=== PATIENT | male | born 1965 | race Caucasian/White ===

== ENCOUNTER 2021-12-14 08:00 | Outpatient (CLI) | payer OTHER ==
[2021-12-14 19:50] LABS: BASOPHILS % (AUTO) 0.4 %; EOSINOPHILS # (AUTO) 0.2 10^3/uL (0.0-0.7); EOSINOPHILS % (AUTO) 3.2 %; HCT - HEMATOCRIT 47.2 % (42.0-52.0); HGB - HEMOGLOBIN 15.7 g/dL (14.0-18.0); LYMPHOCYTES # (AUTO) 1.6 10^3/uL (1.5-3.5); LYMPHOCYTES % (AUTO) 21.2 %; MEAN CORPUSCULAR HEMOGLOBIN 29.5 pg (27.0-31.0); MEAN CORPUSCULAR HGB CONC 33.3 g/dL (32.0-36.0); MEAN CORPUSCULAR VOLUME 88.7 fL (80.0-94.0); MEAN PLATELET VOLUME 11.1 fL (7.4-11.4); MONOCYTES # (AUTO) 0.7 10^3/uL (0.0-1.0); MONOCYTES % (AUTO) 9.8 %; NEUTROPHILS # (AUTO) 4.9 10^3/uL (1.5-6.6); NEUTROPHILS % (AUTO) 65.1 %; PLT - PLATELET COUNT 244 10^3/uL (130-450); RED BLOOD COUNT 5.32 10^6/uL (4.70-6.10); RED CELL DISTRIBUTION WIDTH 12.3 % (12.0-15.0); WHITE BLOOD COUNT 7.6 x10^3/uL (4.8-10.8)
[2021-12-14 20:03] LABS: ALBUMIN 4.7 g/dL (3.2-5.5); ALBUMIN/GLOBULIN RATIO 1.5 (1.0-2.2); BILIRUBIN,TOTAL 0.6 mg/dL (0.2-1.0); POTASSIUM 4.1 mmol/L (3.5-5.0); TOTAL PROTEIN 7.8 g/dL (6.7-8.2)
== END 2021-12-14 23:59 | disposition home or self-care (01) ==
LOC: LAB.S 08:00
PROVIDERS: ATTEND Physician Assistant Medical
DX: Z51.81 Encounter for therapeutic drug level monitoring (principal); E78.5 Hyperlipidemia, unspecified; Z79.899 Other long term (current) drug therapy
CPT/HCPCS: 36415; 80053; 85025

== ENCOUNTER 2022-03-26 16:27 | Outpatient (CLI) | payer OTHER ==
[2022-03-26 21:10] LABS: PSA FREE 0.35 ng/mL (0.16-2.81); PSA TOTAL 0.92 ng/mL (0.000-2.000)
== END 2022-03-26 16:28 | disposition home or self-care (01) ==
LOC: LAB.S 16:27
PROVIDERS: ATTEND Physician Assistant
DX: N40.1 Benign prostatic hyperplasia with lower urinary tract symptoms (principal); N13.8 Other obstructive and reflux uropathy
CPT/HCPCS: 36415; 84153; 84154

== ENCOUNTER 2022-05-05 09:28 | Day surgery (SDC) | payer OTHER ==
[2022-05-05] MEDS ORDERED: LACTATED RINGERS 1,000 ML IV ONE ×2 (09:48→11:34)
[2022-05-05] MEDS ORDERED: LIDOCAINE-MPF 2% 5 ML VIAL ONE (10:28)
[2022-05-05] MEDS ORDERED: PROPOFOL 500 MG/50 ML 500 MG/50 ML VIAL ONE (10:28)
--- NOTE | 2022-05-05 10:30 | ANESTHESIA ---
Pre-Anesthesia VS, & Labs - Diagnosis screening colonoscopy - Procedure colonoscopy Vital Signs: Temp Pulse Resp BP Pulse Ox 36.4 C L 78 16 136/96 H 98 05/05/22 09:51 05/05/22 09:51 05/05/22 09:51 05/05/22 09:51 05/05/22 09:51 Height: 5 ft 10 in Weight (kg): 74 kg Body Mass Index: 23.3 BMI Classification: Healthy weight - NPO >8 hours Home Medications and Allergies Home Medications: Ambulatory Orders Losartan Potassium 1 tab PO DAILY 05/04/22 Pravastatin [Pravachol] 1 tab PO DAILY 05/04/22 Tadalafil [Cialis] 1 tab PO DAILY 05/04/22 Losartan Potassium 1 tab PO DAILY 05/04/22 Pravastatin [Pravachol] 1 tab PO DAILY 05/04/22 Tadalafil [Cialis] 1 tab PO DAILY 05/04/22 Allergies/Adverse Reactions: Allergies Allergy/AdvReac Type Severity Reaction Status Date / Time clarithromycin [From Biaxin] AdvReac Unknown Verified 05/04/22 13:31 Penicillins AdvReac Nausea Verified 05/04/22 13:31 Sulfa (Sulfonamide AdvReac Nausea Verified 05/04/22 13:31 Antibiotics) Anes History & Medical History - Anesthetic History Anesthesia Complications: reports: Slow wake-up - Medical History Cardiovascular: reports: Hypertension, High cholesterol Pulmonary: reports: Sleep apnea (reports snoring, has not been tested.) Gastrointestinal: reports: None Urinary: reports: Benign prostate hypertrophy Neuro: reports: None Musculoskeletal: reports: None Endocrine/Autoimmune: reports: None Blood Disorders: reports: None Skin: reports: Rosacea Smoking Status: Never smoker Psychosocial: reports: No issues indicated History of Cancer?: No Exam General: Alert, Oriented x3, Cooperative, No acute distress Dental: WNL Mouth Openin Fingerbreadth Neck Mobility: Normal Mallampati classification: II Thyromental Distance: 4-6 cm Mental/Cognitive Status: Alert/Oriented X3, Normal for patient Plan Anesthesia Type: General, Total IV Consent for Procedure(s) Verified and Reviewed: Yes Code Status: Attempt Resuscitation ASA classification: 2-Mild systemic disease Is this case an emergency?: No
--- NOTE | 2022-05-05 12:08 | ANESTHESIA POST OP EVALUATION ---
Anesthesia Post Eval - Post Anesthesia Eval Vitals: Last Vital Signs Temp 36.4 C L 05/05/22 11:54 Pulse 65 05/05/22 11:54 Resp 16 05/05/22 11:54 BP 111/86 H 05/05/22 11:54 Pulse Ox 100 05/05/22 11:54 CV Function Including HR & BP: Stable Pain Control: Satisfactory Nausea & Vomiting: Negative Mental Status: Baseline Respiratory Status: Airway Patent Hydration Status: Satisfactory Anesthesia Complications: None
[2022-05-05 12:12] VITALS: BP 111/80
== END 2022-05-05 09:29 | disposition home or self-care (01) ==
LOC: SDS 09:28
PROVIDERS: ATTEND Surgery
DX: Z12.11 Encounter for screening for malignant neoplasm of colon (principal); K57.30 Diverticulosis of large intestine without perforation or abscess without bleeding; K64.8 Other hemorrhoids; Z86.010 Personal history of colon polyps; I10 Essential (primary) hypertension; G47.30 Sleep apnea, unspecified
CPT/HCPCS: 45378; J7120

== ENCOUNTER 2022-06-15 12:43 | Outpatient (CLI) | payer OTHER ==
--- NOTE | 2022-06-15 18:12 | Ultrasound Report ---
PROCEDURE: Abdomen Limited INDICATIONS: ELEVATED ALT TECHNIQUE: Real-time scanning was performed of the abdominal and retroperitoneal organs, with image documentatio n. COMPARISON: None. FINDINGS: Liver: Liver shows diffusely increased echogenicity without focal mass lesion. No intrahepatic duct al dilation. Flow within main portal vein is hepatopedal Gallbladder: Sonolucent without cholelithiasis. No gallbladder wall thickening. No pericholecystic fluid or Shaikh's sign. Common Bile Duct: 3.9 mm. Pancreas: Unremarkable as visualized. Right Kidney: Appropriate in size and echotexture. No evidence of hydronephrosis. No shadowing calc ngoc. No solid or cystic mass lesion. IMPRESSION: Hepatic fatty infiltration. Otherwise unremarkable right upper quadrant ultrasound Reviewed by: Zaire Singh MD on 06/15/2022 5:10 PM TIM Approved by: Zaire Singh MD on 06/15/2022 5:10 PM TIM Station ID: [id number]
== END 2022-06-15 12:44 | disposition home or self-care (01) ==
LOC: DI 12:43
PROVIDERS: ATTEND Nurse Practitioner Family
DX: K76.0 Fatty (change of) liver, not elsewhere classified (principal)

== ENCOUNTER 2022-07-05 12:15 | Outpatient (CLI) | payer OTHER | END 2022-07-05 12:16 | disposition home or self-care (01) | LOC: SC 12:15 | PROVIDERS: ATTEND Nurse Practitioner Family | DX: G47.33 Obstructive sleep apnea (adult) (pediatric) (principal); R09.02 Hypoxemia | CPT/HCPCS: 95806 ==

== ENCOUNTER 2022-07-14 15:27 | Outpatient (CLI) | payer OTHER ==
[2022-07-14 16:11] VITALS: BP 114/64
--- NOTE | 2022-07-14 16:11 | SLEEP CARE CONSULTATION ---
Information from patient questionnaire entered by Russell Elias. I have reviewed and concur with the information entered by Russell Elias. This document represents the service I personally performed and the decisions made by me, Aspen Elkins ARNP. History of Present Illness Service Date and Time: 07/14/2022 1527 Initial [place] Sleepiness Scale score: 3 (05/21/2022) Current [place] Sleepiness Scale score: 5 (07/14/22) Additional HPI information: DAVID ROLAND returns for follow up and results of the recently performed home sleep study. I explained the pathophysiology behind obstructive sleep apnea. We then spent quite a bit of time discussing different treatment options. For mild obstructive sleep apnea, surgery and oral appliance are alternatives to nasal CPAP therapy but in moderate or severe cases, nasal CPAP is the most effective and reliable treatment. I reviewed the impact of weight changes on sleep apnea and strongly recommended losing weight. After some discussion, the patient opted to go with the nasal CPAP therapy. Nasal autoCPAP set at 4-15 cmH20 will be ordered with rationale explained. A manual titration study will be ordered if unable to find optimal pressure with office adjustments. I explained how CPAP machine works and what to expect when using the machine. Using CPAP every night in order to get used to it was emphasized. Patient advised to put CPAP mask on before getting into bed so as not to fall asleep without CPAP. To assist acclimation to CPAP use, it could also be used for a short time during day while reading or watching TV. The patient was instructed to call the CPAP supplier to discuss any mechanical problem that may occur. If the mask given is uncomfortable or is difficult to keep on through the night even with adjustment, contact the CPAP supplier as many will replace with another mask style if notified before 30 days. If snoring or perceives is not getting enough air or too much air from the machine, notify this office. Patient does not drink alcohol. Patient was cautioned about risks of drowsy driving until sleepiness symptoms resolve. Patient denies drowsy driving. Sleep Study - Results Type of Sleep Study: Home sleep study (DONE 07/05/22) Prior sleep studies: No Polysomnography/Home Sleep Study results: Physician Impression: The quality of the study is good. The length of the study is [id number] (< 240 minutes). Please also see the tabulated and graphic data. 1. Obstructive Sleep Apnea-Hypopnea (ICD-10 G47.33), moderate, with an AHI of 28.4/hr and mitul SaO2 of 86%. During the study, the patient had 38 apneas (38 obstructive, 0 central, 0 mixed) and 39 hypopneas. The longest episode lasted 88.5 seconds. The respiratory events occurred independently of sleep stage and body position (supine AHI was 22.7 and non-supine, 32.33). 2. Hypoxemia (ICD-10 R09.02), mild, with the lowest oxygen saturation of 86 % and 2.6 minutes with SaO2 under 90%. Baseline oxygen saturation was normal (Average oxygen saturation was 95%). Allergies and Home Medications Home medication list reviewed: Yes (Rosuvastatin 20 mg replaces Pravastatin 10 mg) Allergy and home medication list: Allergies clarithromycin [From Biaxin] Adverse Reaction (Verified 05/04/22 13:31) Unknown Penicillins Adverse Reaction (Verified 05/04/22 13:31) Nausea Sulfa (Sulfonamide Antibiotics) Adverse Reaction (Verified 05/04/22 13:31) Nausea Review of Systems Review of systems same as previous: No (Fatty liver) Physical Exam Vital signs obtained and entered by: THAIS SHIELDS Blood Pressure: 114/64 (left arm ) Cuff size: regular Heart Rate: 69 O2 Saturation: 100 Height: 5 ft 10 in Weight: 164 lb Body Mass Index: 23.5 BMI Classification: Normal Impression and Plan 1. Obstructive Sleep Apnea-Hypopnea Syndrome, moderate, with lowest oxygen saturation of 86%. Obviously this is the cause of the patients symptoms of unrefreshed sleep, and excessive daytime sleepiness. Positive pressure therapy could benefit hypertension and depression. As mentioned above, the patient will be started on nasal autoCPAP therapy with pressure set at 4-15 cmH2O. Compliance guidelines also reviewed. A copy of compliance guidelines will be given for reference at check out. * Nasal auto CPAP therapy, pressure at 4-15 cm H2O. * The patient is again cautioned about driving until sleepiness completely resolves. * Return one month after CPAP obtained. I will assess response to therapy and compliance at that time. Counseling Topics: Weight control Visit Type: In Office Time Spent with Patient (minutes): 24 Provider Statement: I spent 100% of the Face to Face Visit with the patient with greater than 50% spent counseling the patient and coordination of care.
== END 2022-07-14 15:28 | disposition home or self-care (01) ==
LOC: SC 15:27
PROVIDERS: ATTEND Nurse Practitioner Family
DX: G47.33 Obstructive sleep apnea (adult) (pediatric) (principal)
CPT/HCPCS: 99212; 99213

== ENCOUNTER 2022-09-07 13:13 | Outpatient (CLI) | payer OTHER ==
[2022-09-07 14:02] VITALS: BP 124/72
--- NOTE | 2022-09-07 14:02 | SLEEP CARE CONSULTATION ---
Information from patient questionnaire entered by Amarilis oStomayor. I have reviewed and concur with the information entered by Amarilis Sotomayor. This document represents the service I personally performed and the decisions made by me, Aspen Elkins ARNP. History of Present Illness Service Date and Time: 09/07/2022 1313 Previous diagnosis: Moderate, Obstructive Sleep Apnea-Hypopnea Syndrome AHI: 28.4 (in 2021) Reason for follow up: first compliance (SET UP 07/27/2022 RESMED) Equipment type: CPAP Equipment obtained from: Other ([facility]; got initial supplies) Mask style: Nasal pillows (Eitan II) Backup mask available: No (will keep old mask when replaced) Last cushion change: 3 days Prior sleep studies: No Type of Sleep Study: Home sleep study (DONE 07/05/22) HPI additional information: DAVID ROLAND was diagnosed to have moderate, AHI 28.4, obstructive sleep apnea-hypopnea syndrome and returned today for CPAP therapy first compliance follow-up. Sleep Study - Results Type of Sleep Study: Home sleep study (DONE 07/05/22) Prior sleep studies: No CPAP Compliance Data - Data Reviewed with Patient Average duration of nightly device use: 6 HRS 52 MIN Compliance rate %: 85 (08/05/2022-09/07/2022; 29/34 days used) Current pressure setting (cmH2O): 4-15 (median 7.7, avg 10.7, max 12.4) Average residual AHI: 11.2 Central apnea: 8.2 Obstructive apnea: 1.9 Subjective Patient concerns: reports: mask discomfort (hard to get nasal pillows to seat well; gets easier as it softens up), mask leak noise, nasal congestion (has allergy issues; better with mask). denies: aerophagia, air blowing in eyes, condensation in mask/hose, dry mouth, nose, throat, epistaxis Observed to snore while using device: No Current pressure setting perceived as: comfortable (unsure) On therapy, patient: reports: sleeping better (a little bit), other (not much improvement yet with feeling rested). denies: drowsiness while driving Initial [place] Sleepiness Scale score: 3 (05/21/2022) Current [place] Sleepiness Scale score: 3 (09/07/2022) Allergies and Home Medications Drug allergies reviewed: Yes (see list in EMR) Home medication list reviewed: Yes (no changes) Review of Systems Review of systems same as previous: Yes (no changes) Physical Exam Vital signs obtained and entered by: AMARILIS Laureano MA Blood Pressure: 124/72 (LEFT ARM) Cuff size: regular Heart Rate: 114 O2 Saturation: 95 Height: 5 ft 10 in Weight: 171 lb Body Mass Index: 24.5 BMI Classification: Normal Impression and Plan 1. Obstructive Sleep Apnea-Hypopnea Syndrome, moderate, with good treatment compliance and fair apnea control with elevated residual AHI. He had elevated central index at 8.2 and obstructive of 1.9. The patients pressure will be changed to autoCPAP 6-10 cmH20 for elevation of residual AHI. Patient advised to contact me if pressure change is uncomfortable so that it can be adjusted. Goals for apnea control discussed. He had been using a nasal pillows Eitan II mask and is able to get it to work for him but still gets some mask leak noise and discomfort. He is persevering. I talked to him about a [employer] nasal pillows mask as an alternative because he does not like the hose in front. He wi ll think about this, he is able to get the other mask to work for him most of the time. He wants to try it for a little longer. He may need a smaller cushion size, he is using a medium. Patient's apnea severity and rationale for treatment to reduce apnea, improve sleep quality and reduce cardiovascular and cerebrovascular events was reviewed. I also reviewed the benefit of consistent device use of CPAP for hypertension and depression. * Change auto CPAP pressure to 6-10 cmH2O * Notify me if snoring with mask or feeling that the pressure is too much or too little * maintain a healthy weight * Call this office if any problems using CPAP * Return for follow up in 1-2 months, or sooner if concerns arise Counseling Topics: Spare mask Visit Type: In Office Time Spent with Patient (minutes): 22 Provider Statement: I spent 100% of the Face to Face Visit with the patient with greater than 50% spent counseling the patient and coordination of care.
== END 2022-09-07 13:14 | disposition home or self-care (01) ==
LOC: SC 13:13
PROVIDERS: ATTEND Nurse Practitioner Family
DX: G47.33 Obstructive sleep apnea (adult) (pediatric) (principal)
CPT/HCPCS: 99212; 99213

== ENCOUNTER 2022-10-20 13:11 | Outpatient (CLI) | payer OTHER ==
[2022-10-20 13:53] VITALS: BP 124/88
--- NOTE | 2022-10-20 13:53 | SLEEP CARE CONSULTATION ---
Information from patient questionnaire entered by Amarilis Sotomayor. I have reviewed and concur with the information entered by Amarilis Sotomayor. This document represents the service I personally performed and the decisions made by , Aspen Elkins ARNP. History of Present Illness Service Date and Time: 10/20/2022 1311 Previous diagnosis: Moderate, Obstructive Sleep Apnea-Hypopnea Syndrome AHI: 28.4 (in 2021) Reason for follow up: other (SIX WEEK F/U PRESSURE CHANGE) Equipment type: CPAP (RESMED) Equipment obtained from: Other ([facility]; getting supplies) Mask style: Nasal pillows Mask brand: Eitan II Backup mask available: No (will keep old mask when replaced) Last cushion change: 1 month+ Prior sleep studies: No Type of Sleep Study: Home sleep study (DONE 07/05/22) HPI additional information: DAVID ROLAND was diagnosed to have moderate, AHI 28.4, obstructive sleep apnea-hypopnea syndrome and returned today for CPAP therapy six weeks follow-up. Sleep Study - Results Type of Sleep Study: Home sleep study (DONE 07/05/22) Prior sleep studies: No CPAP Compliance Data - Data Reviewed with Patient Average duration of nightly device use: 6 hours 8 minutes Compliance rate %: 62 (08/05-10/20/2022; 51/77 days used) Current pressure setting (cmH2O): 6-10 Average residual AHI: 11.9 Central apnea: 8.2 Obstructive apnea: 2.7 Average large leak: 1.3 Subjective Missed days of use due to: reports: illness (nasal congestion with being sick) Patient concerns: reports: mask leak noise, nasal congestion. denies: aerophagia, mask discomfort, air blowing in eyes, condensation in mask/hose, dry mouth, nose, throat, epistaxis Observed to snore while using device: No Current pressure setting perceived as: comfortable On therapy, patient: reports: sleeping better, awakening more refreshed, being more awake and alert during the day, more rested overall. denies: drowsiness while driving Initial [place] Sleepiness Scale score: 3 (05/21/2022) Current [place] Sleepiness Scale score: 3 (10/20/22) Allergies and Home Medications Drug allergies reviewed: Yes (see list in EMR) Home medication list reviewed: Yes (no changes) Review of Systems Review of systems same as previous: Yes (no changes; had a respiratory illness) Physical Exam Vital signs obtained and entered by: AMARILIS Laureano MA Blood Pressure: 124/88 (LEFT ARM) Cuff size: regular Heart Rate: 81 O2 Saturation: 94 Height: 5 ft 10 in Weight: 164 lb 9.6 oz Body Mass Index: 23.6 BMI Classification: Normal Impression and Plan 1. Obstructive Sleep Apnea-Hypopnea Syndrome, moderate, with fair treatment compliance and fair apnea control with elevated residual AHI. On CPAP therapy, the patient has better sleep quality and is more rested overall. Patient still has an elevated residual AHI with central index of 8.2 and obstructive index at 2.7. I discussed with patient to have a titration study to try and find adequate pressure to control apneas (central and obstructive). He voiced understanding and agreement. He was informed of need for Covid test prior to night of titration study. He voiced understanding. Patient's apnea severity and rationale for treatment to reduce apnea, improve sleep quality and reduce cardiovascular and cerebrovascular events was reviewed. I also reviewed the benefit of consistent device use of CPAP for hypertension and depression. * Continue auto CPAP pressure at 6-10 cmH2O * Titration study * Notify me if snoring with mask or feeling that the pressure is too much or too little * Attempt to lose weight * Call this office if any problems using CPAP * Return for follow up after titration study completed, or sooner if concerns arise Counseling Topics: Spare mask Visit Type: In Office Time Spent with Patient (minutes): 23 Provider Statement: I spent 100% of the Face to Face Visit with the patient with greater than 50% spent counseling the patient and coordination of care.
== END 2022-10-20 13:12 | disposition home or self-care (01) ==
LOC: SC 13:11
PROVIDERS: ATTEND Nurse Practitioner Family
DX: G47.33 Obstructive sleep apnea (adult) (pediatric) (principal)
CPT/HCPCS: 99212; 99213

== ENCOUNTER 2022-11-17 11:25 | Outpatient (CLI) | payer OTHER | END 2022-11-17 11:26 | disposition home or self-care (01) | LOC: LAB.S 11:25 | PROVIDERS: ATTEND Nurse Practitioner Family | DX: U07.1 COVID-19 (principal) ==